=== PATIENT | male | born 1975 | race Caucasian/White ===

== ENCOUNTER → 2017-11-24 09:56 | Outpatient (CLI) | payer MEDICAID, SELFPAY ==
[2017-11-24 10:00] LABS: Microscopic, Urine URINE MICROSCOPIC (MICROSCOPIC)
[2017-11-24 10:26] LABS: Basophils % 0.4 % (0.1-2.0); Eosinophils # 0.3 K/mm3 (0.0-0.4); Hematocrit 44.4 % (42.0-52.0); Hemoglobin 13.7 g/dL (14.1-18.0); Lymphocytes # 2.5 K/mm3 (0.7-4.5); Lymphocytes % 30.6 K/mm3 (10-50); Mean Corpuscular HGB Conc 30.9 g/dL (31.8-35.4); Mean Corpuscular Hemoglobin 28.3 pg (27.0-31.2); Mean Corpuscular Volume 91.5 fl (80-94); Monocytes # 0.7 K/mm3 (0.1-1.0); Monocytes % 8.4 % (1.7-9.3); Neutrophils # 4.8 K/mm3 (1.8-7.8); Neutrophils % 57.6 % (37.0-80.0); Platelet Count 167 K/mm3 (142-424); Red Blood Count 4.85 M/mm3 (4.60-6.20); White Blood Count 8.2 K/mm3 (4.8-10.8)
[2017-11-24 11:06] LABS: Appearance,Urine SL CLOUDY (Clear); Bilirubin,Urine Negative (Negative); Blood, Urine Negative (Negative); Color,Urine YELLOW (Yellow); Glucose,Urine (UA) Negative (Negative); Ketones,Urine TRACE (Negative); Leukocyte Esterase,Urine Negative (Negative); Nitrate,Urine Negative (Negative); PH,Urine 5.5 (5.0-8.5); Protein,Urine TRACE (Negative); Specific Gravity, Urine 1.025 (1.005-1.030); Urobilinogen,Urine 0.2 EU/dl (0.2)
[2017-11-24 11:25] LABS: WBC,Urine Occasional #/hpf (0-3)
[2017-11-24 11:26] LABS: Bacteria,Urine 1+ /lpf
== END ==
PROVIDERS: Visit Provider Surgery
DX: Z01.818 Encounter for other preprocedural examination (principal); K42.0 Umbilical hernia with obstruction, without gangrene
CPT/HCPCS: 36415; 81001; 85025; 93005

== ENCOUNTER 2017-11-26 08:19 | Observation (INO) ==
--- NOTE | 2017-11-26 09:22 | Progress Note ---
[facility] Anesthesia Checklist - Structural Data Admitted From: Home Planned Operative Procedure/s: lap/open umbilical hernia repair Consent for Planned Operative Procedure(s) Verified: Yes Verified Documents: Surgical Consent - Airway Assessment C-Spine Mobility Assessed: Yes TMJ Mobility Assessed: Yes Dentition: Poor Dentition - Neurological Assessment Level of Consciousness: Awake, Alert, Appropriate - Anesthesia Plan Anesthesia Risk discussed: Yes ASA Class: III Anesthesia Type: General [facility] Anesthesia HX I have reviewed the patient's past medical history: Yes Medical History: Reports:: Diabetes Mellitus Type 2 Denies:: Cancer, Diabetes Mellitus Type 1, MRSA, Seizures Other Medical History: Denies: Blood Transfusion Reaction Laterality Cases: Bilateral: Tonsillectomy Amputation: No Fractures: No *Family Hx:: Hypertension, Cancer, Heart Attack, Stroke
--- NOTE | 2017-11-26 12:55 | Operative Note ---
Date of procedure: 11/26/17 Pre-op Diagnosis:: Incarcerated umbilical hernia Post-op Diagnosis:: Same Procedure performed:: Laparoscopic-assisted open repair of incarcerated umbilical hernia Surgeon:: Sadiq León MD Prefabricated Houses Trimmer(s):: Juvenal Boyce RABIES INSPECTOR:: Will Carrion Anesthesia: GETTheresa Estimated blood loss (mL): 25 Clinical Note:: This is a 42-year-old gentleman who presented to the emergency department over the weekend with periumbilical pain. Physical exam findings and a CT scan revealed an incarcerated umbilical hernia. Omentum and a loop of small bowel were noted within the defect. After returning from radiology the patient did have reduction of his hernia without significant difficulty. He was deemed appropriate for discharge with close follow-up. Outpatient reevaluation revealed no sign of recurrent incarceration and he was scheduled for laparoscopic or open repair. Operative findings:: 3 cm defect Large amount of incarcerated omentum Incarcerated omentum resected 8 cm VentraLex plug secured in position Operative note:: After informed consent was obtained, the patient was taken to the operating room and placed in the supine position. General anesthesia was induced and his abdomen was prepped and draped in a sterile fashion. A Veress needle was placed in the left upper quadrant after a small stab incision was made. Although appropriate release of tension was noted on the Veress needle, insufflation pressures were too high. The decision was made to forego additional maneuvering of the Veress needle. A 5 mm optical trocar was placed through a left flank incision. The patient's girth/depth of adipose tissue made confirmation of injury difficult and the decision was made to simply create a curvilinear incision over the umbilicus. This was done sharply with scalpel and the deeper subcutaneous tissue was dissected. The hernia sac was elevated and resected with electrocautery. The hernia sac was passed off as specimen. A large portion of incarcerated omentum was carefully maneuvered. The incarcerated omentum was viable; however, the decision was made to resect the incarcerated portion of omentum due to concerns regarding ischemia secondary to significant manipulation. This was accomplished utilizing a clamp/ cut/tie method with Vicryl suture ligation. The defect was then carefully evaluated. The defect was approximately 3 cm in diameter. An 8 cm VentraLex plug was secured in position with interrupted Ethibond. The overlying fascia was then reapproximated with #2 Ethibond. Reevaluation laparoscopically revealed the plug to be in good position. Secondary to the patient's obesity and concerns for recurrence, the margin of the plug was secured with laparoscopic tacks. No sign of ongoing bleeding or other injury was noted. Trocars were removed as pneumoperitoneum was released. All wounds were irrigated and skin was stapled. Dressings were applied and the patient was transferred to recovery in stable condition after extubation. Condition: stable Disposition: PACU Specimens:: Omentum Hernia sac Complications:: No immediate
--- NOTE | 2017-11-26 13:12 | Progress Note ---
[facility] Anesthesia Record Part II Discharge Time: 13:30 Destination: [facility] PACU nurse assessment reviewed?: Yes Patient Condition:: Good Anesthesia Complications:: None
--- NOTE | 2017-11-26 13:12 | Progress Note ---
[facility] Anesthesia Record Part I Intake, IV Amount: 1,800 Estimated blood loss (mL): 25 Urine output (mL): 0 Blood Pressure: 139/74 SaO2: 95 Pulse Rate: 77 Respiratory Rate: 16 Temperature: 97.8 F Patient is:: Drowsy, Stable Stable to PACU at:: 13:00
--- NOTE | 2017-11-26 13:22 | Pharmacy Consult Notes ---
[facility] Pharmacy VTE Monitoring - Patient Demographics Admission date: 11/26/17 Report Date: 11/26/17 Time: 13:22 Allergies/Adverse Reactions: Patient Allergies No Known Allergies Allergy (Verified 11/25/17 10:14) Height: 1.83 m Weight: 178.347 kg - VTE Risk Clinical Trial Participant: No - Prophylaxis VTE Prophylaxis Ordered?: Yes Types of VTE Prophylaxis: TEDS Knee High
--- NOTE | 2017-11-27 06:41 | Progress Note ---
Subjective Patient reports: no new complaints, flatus Exam Vital signs and Labs for Last 24 Hours: Temp Pulse Resp BP Pulse Ox 97.6 F 78 16 107/54 96 11/27/17 05:08 11/27/17 05:08 11/27/17 05:08 11/27/17 05:08 11/27/17 05:08 Laboratory Results - last 24 hr 11/26/17 08:49: POC Glucose 109 11/26/17 13:11: POC Glucose 133 H 11/26/17 20:21: POC Glucose 145 H 11/27/17 06:03: POC Glucose 120 H I & O for Last 24 hours: Intake & Output 11/24/17 11/25/17 11/26/17 11/27/17 11:59 11:59 11:59 11:59 Intake Total 2029 / 2030 Output Total 1000 / 1000 Balance 1030 / 1030 Weight 393 lb 3 oz 393 lb 3 oz - Constitutional no acute distress - *Routine Respiratory Exam Absent: respiratory distress - *Routine Cardiovascular Exam Present: RRR - *Routine Abdominal Exam Present: soft Comments: dressings intackt. no erythema. Progress Note: A&P (1) Umbilical hernia with obstruction but no gangrene Status: Acute Assessment and plan: Overall, doing well s/p laparoscopic-assisted open repair. Wean nasal cannula oxygen to off Ambulate Follow-up morning labs Possible discharge home later today Current Visit: Yes
[2017-11-27 07:21] LABS: Anion Gap 9.3 mEq/L (5-15); Potassium 5.3 mmoL/L (3.5-5.1)
[2017-11-27 07:59] LABS: Hematocrit 38.3 % (42.0-52.0); Hemoglobin 12.3 g/dL (14.1-18.0); Mean Corpuscular Volume 89.5 fl (80-94); Red Blood Count 4.29 M/mm3 (4.60-6.20); White Blood Count 11.6 K/mm3 (4.8-10.8)
[2017-11-27 08:00] LABS: Basophils % 0.4 % (0.1-2.0); Eosinophils % 0.9 % (0.1-12.0); Lymphocytes # 2.2 K/mm3 (0.7-4.5); Lymphocytes % 18.7 K/mm3 (10-50); Mean Corpuscular Hemoglobin 28.6 pg (27.0-31.2); Mean Platelet Volume 9.6 fl (7.4-10.4); Monocytes % 6.5 % (1.7-9.3); Neutrophils # 8.4 K/mm3 (1.8-7.8); Neutrophils % 72.3 % (37.0-80.0); Platelet Count 181 K/mm3 (142-424); Red Cell Distribution Width 12.9 % (11.5-17.5)
[2017-11-27 08:01] LABS: Basophils # 0.1 K/mm3 (0-0.2); Eosinophils # 0.1 K/mm3 (0.0-0.4); Monocytes # 0.8 K/mm3 (0.1-1.0)
--- NOTE | 2017-11-27 11:52 | Discharge Summary ---
General - General Admission date: 11/26/17 Discharge date: 11/27/17 HPI HPI: This is a 42-year-old gentleman who underwent laparoscopic-assisted open repair of incarcerated umbilical hernia. Please see operative report for detail. He was admitted for observation postoperatively. Hospital Course Hospital Course: The patient remained afebrile with stable and normal vital signs. His diet was advanced and he was deemed appropriate for discharge on the afternoon postoperative day 1. Objective Vital signs: Temp Pulse Resp BP Pulse Ox 97.8 F 70 20 115/82 95 11/27/17 07:31 11/27/17 08:00 11/27/17 08:00 11/27/17 07:31 11/27/17 11:30 no acute distress - *Routine Respiratory Exam Absent: respiratory distress - *Routine Abdominal Exam Present: soft Comments: Dressings intact. No erythema. Results Labs on day of discharge: Labs from last 24 hours 11/27/17 11/27/17 11/27/17 06:45 06:45 06:03 WBC 11.6 H D RBC 4.29 L Hgb 12.3 L Hct 38.3 L MCV 89.5 MCH 28.6 MCHC 32.0 RDW 12.9 Plt Count 181 MPV 9.6 Neut % (Auto) 72.3 Lymph % (Auto) 18.7 [place] % (Auto) 6.5 Eos % (Auto) 0.9 Baso % (Auto) 0.4 Neut # (Auto) 8.4 H Lymph # (Auto) 2.2 [place] # (Auto) 0.8 Eos # (Auto) 0.1 Baso # (Auto) 0.1 Sodium 145 Potassium 5.3 H Chloride 110 H Carbon Dioxide 31 Anion Gap 9.3 BUN 17 Creatinine 1.46 H Estimated Creat Clear 72 Estimated GFR 53 L Est GFR ( Amer) 64 Glucose 117 H POC Glucose 120 H 11/26/17 11/26/17 20:21 13:11 WBC RBC Hgb Hct MCV MCH MCHC RDW Plt Count MPV Neut % (Auto) Lymph % (Auto) [place] % (Auto) Eos % (Auto) Baso % (Auto) Neut # (Auto) Lymph # (Auto) [place] # (Auto) Eos # (Auto) Baso # (Auto) Sodium Potassium Chloride Carbon Dioxide Anion Gap BUN Creatinine Estimated Creat Clear Estimated GFR Est GFR ( Amer) Glucose POC Glucose 145 H 133 H DS: Diagnosis - Discharge Diagnosis (1) Umbilical hernia with obstruction but no gangrene Status: Acute Discharge Plan - Patient Discharge Instructions ACTIVITY: No heavy lifting DIET: advance to your usual diet Additional Instructions: Remove dressings on November 28. The patient may shower after dressings are removed. - Follow up Plan Follow up with: Sadiq León MD [Staff Physician] - 1 week Disposition: [facility] Home Medications: Home Medications Medication Instructions Recorded Confirmed Type Amlodipine Besylate [Norvasc 5mg 5 mg PO DAILY 11/22/17 11/26/17 History tablet] Asenapine Maleate [Saphris] 5 mg SL DAILY 11/22/17 11/26/17 History Asenapine Maleate [Saphris] 10 mg SL HS 11/22/17 11/26/17 History Atorvastatin Calcium [Atorvastatin 20 mg PO HS 11/22/17 11/26/17 History 20mg Tab] Fluoxetine HCl [Prozac] 60 mg PO DAILY 11/22/17 11/26/17 History Ibuprofen [Advil 200mg Tab] 200 mg PO Q6HP PRN 11/22/17 11/26/17 History Lisinopril [Lisinopril 20mg Tab] 20 mg PO DAILY 11/22/17 11/26/17 History Metformin HCl 1,000 mg PO BIDWM 11/22/17 11/27/17 History Metoprolol Tartrate [Lopressor 50 mg PO BID 11/22/17 11/26/17 History 50mg tablet] Mirtazapine 30 mg PO HS 11/22/17 11/26/17 History Ondansetron HCl [Ondansetron 4mg 4 mg PO Q4HP PRN 11/22/17 11/26/17 History Tab] Pantoprazole Sodium [Protonix 40mg 40 mg PO DAILY 11/22/17 11/26/17 History tablet] Trazodone HCl 100 mg PO HS 11/22/17 11/26/17 History Prescriptions/Medication Reconciliation: No Action Pantoprazole Sodium [Protonix 40mg tablet] 40 mg PO DAILY Metoprolol Tartrate [Lopressor 50mg tablet] 50 mg PO BID Lisinopril [Lisinopril 20mg Tab] 20 mg PO DAILY Amlodipine Besylate [Norvasc 5mg tablet] 5 mg PO DAILY Trazodone HCl 100 mg PO HS Ondansetron HCl [Ondansetron 4mg Tab] 4 mg PO Q4HP PRN PRN Reason: Nausea Mirtazapine 30 mg PO HS Metformin HCl 1,000 mg PO BIDWM Ibuprofen [Advil 200mg Tab] 200 mg PO Q6HP PRN PRN Reason: pain Atorvastatin Calcium [Atorvastatin 20mg Tab] 20 mg PO HS Asenapine Maleate [Saphris] 10 mg SL HS Asenapine Maleate [Saphris] 5 mg SL DAILY Fluoxetine HCl [Prozac] 60 mg PO DAILY
== END 2017-11-27 13:21 ==
LOC: OR 08:19 → 2ND 13:19 → INTOOBSV 13:19 → 2ND 13:53
PROVIDERS: ADMIT Surgery; ATTEND Surgery